=== PATIENT | female | born 2005 | race Caucasian/White ===

== ENCOUNTER → 2025-10-06 10:05 | Outpatient (REF) | payer OTHER, SELFPAY | LOC: HWRAD 10:05 | PROVIDERS: ATTENDING PHYSICIAN Pediatrics | DX: R59.0 Localized enlarged lymph nodes (principal); M54.2 Cervicalgia | CPT/HCPCS: 76536 ==

== ENCOUNTER → 2025-10-06 10:10 | Outpatient (REF) | payer OTHER, SELFPAY | LOC: HWRAD 10:10 | PROVIDERS: ATTENDING PHYSICIAN Pediatrics | DX: R59.0 Localized enlarged lymph nodes (principal); M54.2 Cervicalgia | CPT/HCPCS: 72040 ==